=== PATIENT | male | born 1995 ===

== ENCOUNTER 2017-01-04 12:34 | Emergency (ER) | payer OTHER ==
[2017-01-04 12:46] VITALS: PULSE 85; RESP 16; TEMP 98.2
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
[2017-01-04 13:58] VITALS: BP 129/78
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
[2017-01-04 14:15] VITALS: O2SAT 100
== END 2017-01-04 13:58 | disposition home or self-care (01) ==
LOC: C.ER 12:34
DX: S83.91XA Sprain of unspecified site of right knee, initial encounter (principal); V03.10XA Pedestrian on foot injured in collision with car, pick-up truck or van in traffic accident, initial encounter; Y93.01 Activity, walking, marching and hiking; Y92.488 Other paved roadways as the place of occurrence of the external cause

== ENCOUNTER 2017-02-04 11:48 | Emergency (ER) | payer OTHER ==
[2017-02-04] MEDS ORDERED: Oxycodone/Acetaminophen 5/325 mg Tab PO STA (12:01)
[2017-02-04] MEDS ORDERED: Oxycodone/Acetaminophen 5/325 mg Tab ONE (12:09)
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
[2017-02-04 13:31] VITALS: BP 128/86; PULSE 86; RESP 18; TEMP 98.3
[2017-02-04 13:49] VITALS: O2SAT 100
== END 2017-02-04 13:32 | disposition home or self-care (01) ==
LOC: C.ER 11:48
DX: S16.1XXA Strain of muscle, fascia and tendon at neck level, initial encounter (principal); S46.912A Strain of unspecified muscle, fascia and tendon at shoulder and upper arm level, left arm, initial encounter; S09.90XA Unspecified injury of head, initial encounter; V89.1XXA Person injured in unspecified nonmotor-vehicle accident, nontraffic, initial encounter